=== PATIENT | male | born 1960 | race Hispanic/Latino ===

== ENCOUNTER 2016-04-28 14:03 | Inpatient (IN) | payer MEDICAID, OTHER ==
[2016-04-28 14:04] VITALS: BMI 27.7
[2016-04-28 15:10] LABS: BASO # 0.1 K/uL (0.0-0.2); BASO % 0.7 % (0.0-2.0); EOS # 0.1 K/uL (0.0-0.7); EOS % 1.1 % (0.0-4.0); HEMATOCRIT 46.8 % (35.0-51.0); LYMPH # 2.7 K/uL (1.0-4.3); LYMPH % 22.9 % (20.0-40.0); MEAN CORPUSCULAR HEMOGLOBIN 34.7 pg (27.0-31.0); MEAN CORPUSCULAR HGB CONC 34.4 g/dL (33.0-37.0); MEAN PLATELET VOLUME 8.5 fL (7.2-11.7); MONO # 0.9 K/uL (0.0-0.8); MONO % 7.9 % (0.0-10.0); NRBC % 0.1 % (0.0-2.0); RED CELL DISTRIBUTION WIDTH 13.5 % (11.5-14.5); WHITE BLOOD COUNT 11.7 K/uL (4.8-10.8)
[2016-04-28 15:13] LABS: MEAN CELL VOLUME 100.8 fL (80.0-94.0)
[2016-04-28 15:15] LABS: RBC URINE < 1 /hpf (0-3); URINE BACTERIA RARE (<OCC); URINE BILIRUBIN NEGATIVE (NEGATIVE); URINE BLOOD NEGATIVE (NEGATIVE); URINE COLOR Amber (YELLOW); URINE GLUCOSE (UA) NORMAL (Normal); URINE KETONE 1+ mg/dL (NEGATIVE); URINE LEUKOCYTE ESTERASE NEG Leu/uL (Negative); URINE PROTEIN 2+ mg/dL (NEGATIVE); WBC URINE 1 /hpf (0-5)
[2016-04-28 15:24] LABS: CHLORIDE 96 mmol/L (98-107)
[2016-04-28 15:25] LABS: POTASSIUM 3.9 mmol/L (3.6-5.2); SODIUM 140 mmol/L (132-148)
[2016-04-28 15:27] LABS: ALB/GLOB RATIO 1.4 (1.0-2.1); ALKALINE PHOSPHATASE 79 U/L (38-126); AST/SGOT 86 U/L (17-59); BLOOD UREA NITROGEN 13 mg/dL (9-20); CARBON DIOXIDE 23 mmol/L (22-30); GFR AFRICAN-AMERICAN > 60; GLUCOSE,RANDOM 183 mg/dL (75-110); TOTAL PROTEIN 7.3 g/dL (6.3-8.3)
[2016-04-28 15:28] LABS: ALCOHOL SERUM 291 mg/dl (0-10); ALT/SGPT 41 U/L (21-72); CALCIUM 8.7 mg/dl (8.6-10.4)
--- NOTE | 2016-04-28 15:52 | C.PDOC ---
History Of Present Illness 55 year old male presents to the ED requesting alcohol detox. Patient states he drinks 3 pints of liquor a day and also has complaints of left lower leg pain s/ p tripping over his cat at home 3 days ago. Time Seen by Provider: 04/28/16 14:19 Chief Complaint (Nursing): Substance Abuse History Per: Patient History/Exam Limitations: no limitations Onset/Duration Of Symptoms: Days Current Symptoms Are (Timing): Still Present Suicide/Self Injury Attempted (Context): None Modifying Factor(s): Alcohol Severity: Mild Past Medical History Reviewed: Historical Data, Nursing Documentation, Vital Signs Vital Signs: Last Vital Signs Temp 98.1 F 04/28/16 20:40 Pulse 130 H 04/28/16 20:40 Resp 18 04/28/16 20:40 BP 145/90 04/28/16 20:40 Pulse Ox 96 04/28/16 21:01 - Medical History PMH: Anxiety, COPD, Depression, Emphysema, Hepatitis (B and C), Sexually Transmitted Disease Surgical History: Appendectomy (8 yrs old) - [facility] Procedures ALCOHOL DETOXIFICATION (10/31/14) NEBULIZER THERAPY (07/31/04) Family History: States: Unknown Family Hx - Social History Hx Tobacco Use: Yes Hx Alcohol Use: Yes Hx Substance Use: No - Immunization History Hx Tetanus Toxoid Vaccination: No Hx Influenza Vaccination: No Hx Pneumococcal Vaccination: No Review Of Systems Except As Marked, All Systems Reviewed And Found Negative. Constitutional: Positive for: Other (+Detox). Negative for: Fever, Chills Cardiovascular: Negative for: Chest Pain Respiratory: Negative for: Shortness of Breath Musculoskeletal: Positive for: Leg Pain (+Left lower leg pain) Neurological: Negative for: Weakness, Numbness Physical Exam - Physical Exam Appears: Non-toxic, No Acute Distress, Unkempt, Other (+AOB + Foul smelling) Skin: Normal Color, Warm, Dry Head: Atraumatic, Normacephalic Eye(s): bilateral: Normal Inspection Oral Mucosa: Moist Chest: Symmetrical Cardiovascular: Rhythm Regular Respiratory: Normal Breath Sounds, No Accessory Muscle Use Extremity: Normal ROM, No Calf Tenderness, No Deformity, Swelling (+Mild swelling and ecchymosis to the left lateral lower leg) Neurological/Psych: Oriented x3, Normal Speech, Normal Cognition Gait: Other (+Antalgic gait) ED Course And Treatment - Laboratory Results Result Diagrams: 04/28/16 15:00 04/28/16 15:00 O2 Sat by Pulse Oximetry: 96 (Room air) Pulse Ox Interpretation: Normal - Other Rad Tibia Fibula X-ray X-Ray: Viewed By Me, Read By Radiologist Interpretation: Findings: Transverse oblique mildly distracted fracture through the proximal fibula at the proximal medullary cavity. Moderate medial compartment joint space narrowing at the femorotibial joint space. Punctate radiopaque density projects within the soft tissues anterior to the patellar tendon, nonspecific, clinical correlation to exclude a foreign body. Vascular calcifications. Question small loose osteochondral body within the femorotibial joint space on the frontal view. Ankle mortise is maintained. Impression: Proximal fibular fracture as described above. Progress Note: Tibia Fibula X-ray, EKG, Blood work, and Urinalysis ordered and reviewed. Patient treated with Librium and Tramadol - Physician Consult Information Outcome Of Conversation: 1420: d/w [facility]- will eval. 1500 and 1800: d/ w Martha Swanson- Orthopedics [employer]- agrees with posterior splint and pain meds for L lateral fibula fracture. Crutch walking when sober and Ortho will follow when consulted. Medical Decision Making Medical Decision Making: alcoholism L upper fibular fx now with posterior splint note: pt with baseline tachycardia which is NOT an accurate indication of THIS patient's alcohol withdrawal symptoms Librium 100 mg given in ED without significant improvement of resting tachycardia. Considering extensive heavy alcohol abuse a dilated cardiomyopathy may be better elucidated with cardiac echo and Cardiology Consult PRN Disposition Doctor Will See Patient In The: Hospital Counseled Patient/Family Regarding: Studies Performed, Diagnosis - Disposition Disposition: HOSPITALIZED Disposition Time: 21:26 Condition: GOOD - Clinical Impression Clinical Impression: Alcohol abuse - Scribe Statement The provider has reviewed the documentation as recorded by the Scribe Jane Cleary. Provider Attestation: All medical record entries made by the Scribe were at my direction and personally dictated by me. I have reviewed the chart and agree that the record accurately reflects my personal performance of the history, physical exam, medical decision making, and the department course for this patient. I have also personally directed, reviewed, and agree with the discharge instructions and disposition.
[2016-04-29] MEDS: Multiple Vitamins Tab PO SCH (09:09)
--- NOTE | 2016-04-29 14:15 | PCM.PSYCH ---
Initial Psychiatric Evaluation - Initial Psychiatric Evaluation Type of Admission: Voluntary Legal Status: Capacity Chief Complaint (in patient's own words): I came in to get help History of Present Illness and Precipitating Events: This is a 55 years old CM currently unemployed and living with girlfriend came to the ED to get help in a alcohol detox. Patient reports that he was admitted at [facility] for alcohol detox almost 2 years ago. As per him he relapsed on drinking and continues to drink pint to 2 pints of vodka on a daily basis. As per the patient he fell down in his house and broke his L leg, almost a week ago. Since then he is drinking more to control the pain. Yesterday he drank more than half pint of vodka, became increasingly anxious and started withdrawing so came to ED to get help. His BAL was 291. Patient reports withdrawal symptoms including anxiety, headaches, sweating, and gastric upset. He reports depressed mood but denies any suicidal ideation or homicidal ideation. Patient denies any auditory or visual hallucinations or any psychotic symptoms. Denies any manic symptoms. Denies any other current substance abuse. Patient reports history of sniffing and injecting heroin, last abuse was more than 10 years ago. Past psychiatric history History of 1 inpatient psychiatric hospitalization, in 80s for depression, when patient had a suicidal ideation with plan to jump in front of traffic. Patient reports history of follow-up with a psychiatrist. Patient denies any psychotic symptoms in the past Past medical history Hep B, C, emphysema Current Medications: Active Medications Generic Name Dose Route Start Last Admin Trade Name Freq PRN Reason Stop Dose Admin Chlordiazepoxide 25 mg 04/28/16 21:40 04/28/16 22:25 Librium PO 25 mg Q4H PRN Administration Alcohol Withdrawal Chlordiazepoxide 25 mg 04/29/16 00:00 04/29/16 11:15 Librium PO 05/02/16 23:59 25 mg Q6 ELIZABETH Administration Taper Clonidine HCl 0.1 mg 04/28/16 21:45 04/29/16 06:44 Catapres PO 0.1 mg Q8 PRN Administration alcohol withdrawal Folic Acid 1 mg 04/29/16 10:00 04/29/16 09:09 Folic Acid PO 1 mg DAILY ELIZABETH Administration Hydroxyzine HCl 25 mg 04/28/16 22:10 04/29/16 09:09 Atarax PO 25 mg Q8 PRN Administration Anxiety Ibuprofen 600 mg 04/28/16 21:41 Motrin Tab PO Q8 PRN Pain, moderate (4-7) Multivitamins 1 tab 04/29/16 10:00 04/29/16 09:09 Hexavitamin PO 1 tab DAILY ELIZABETH Administration Thiamine HCl 100 mg 04/29/16 10:00 04/29/16 09:09 Vitamin B1 Tab PO 100 mg DAILY ELIZABETH Administration Trazodone HCl 50 mg 04/28/16 21:40 04/28/16 22:25 Desyrel PO 50 mg HS PRN Administration Insomnia Past Psychiatric History - Past Psychiatric History Previous Treatment History: Inpatient Pertinent Medical Hx (Current Medical&Sleep Prob, Allergies): Allergies Allergy/AdvReac Type Severity Reaction Status Date / Time No Known Allergies Allergy Verified 04/28/16 14:15 No Known Home Med 04/28/16 Review of Systems - Review of Systems All systems: reviewed and no additional remarkable complaints except - Psychiatric Psychiatric: Anxiety, Irritability. absent: Auditory Hallucinations, Homicidal Ideation, Memory Loss, Suicidal Ideation, Visual Hallucinations Mental Status Examination - Personal Presentation Personal Presentation: Looks stated age - Affect Affect: Constricted, Depressed - Motor Activity Motor Activity: Calm - Reliability in Providing Information Reliability in Providing Information: Good - Speech Speech: Organized - Mood Mood: Depressed, Anxious - Formal Thought Process Formal Thought Process: No Impairment - Obsessions/Compulsions Obsessions: No Compulsions: No - Cognitive Functions Orientation: Person, Place, Situation, Time Sensorium: Alert Attention/Concentration: Attentive Abstract Thinking: [place] Estimate of Intelligence: Below average Judgement: Imparied, as evidence by: Poor judgement, Intact, as evidence by: Insight regarding need for hospitalization - Risk Risk: Withdrawal, Diminished functioning - Strength & Assets Inventory Strength & Assets Inventory: Cooperative DSM 5 DX - DSM 5 DSM 5 Diagnosis: Alcohol use disorder severe Alcohol withdrawal uncomplicated Opiate use disorder severe in sustained remission Major depressive disorder recurrent mild - Recommended/Plan of Treatment Treatment Recommendations and Plan of Treatment: Alcohol use disorder severe CBT Psychoeducation Supportive therapy, individual therapy Use [place] for abstinence Alcohol withdrawal uncomplicated CBT Psychoeducation Supportive therapy, individual therapy Librium when necessary Start Librium taper Start folic acid/thiamine/multivitamin Opiate use disorder severe in sustained remission Monitor signs and symptoms Use [place] for abstinence Major depressive disorder recurrent Mild CBT Psychoeducation Supportive therapy, individual therapy Start Zoloft 25 mg PO daily Start Trazodone 50 mg PO Q HS - Smoking Cessation Smoking Cessation Initiated: Yes
[2016-04-30] MEDS: Multiple Vitamins Tab PO SCH (10:37)
--- NOTE | 2016-04-30 12:15 | PCM.PYCHPN ---
Psychiatric Progress Note - Psychiatric Progress Note Patient seen today, length of contact: 16 min Patient Chief Complaint: "I have to take care of stuff. I'd like to leave tomorrow" Problems Identified/Issues Discussed: The pt is seen, chart reviewed, case discussed with staff. He agreed to stay and complete his detox after discussion Seen by ortho The pt is compliant with medications and reports no side-effects. Symptoms are improving but needs more time to stabilize. After care discussed, support and psychoeducation given. MD and CBT used briefly. Medication Change: Yes (detox changes daily) Medical Record Reviewed: Yes Mental Status Examination - Cognitive Function Orientation: Person, Place, Situation, Time Memory: Intact Attention: WNL Concentration: WNL Association: [facility] Fund of Knowledge: WN - Mood Mood: Depressed, Anxious - Affect Affect: Constricted, Depressed - Speech Speech: Appropriate - Formal Thought Process Formal Thought Process: No Impairment - Suicidal Ideation Suicidal Ideation: No - Homicidal Ideation Homicidal Ideation: No Goal/Treatment Plan - Goal/Treatment Plan Need for Continued Stay: Discharge may exacerbated symptoms, Severe functional impairment Progress Toward Problem(s) and Goals/Treatment Plan: Continue medications Support and psychoeducation daily Attend groups and activities daily After care planning by counselors MD and CBT Estimated Date of D/C: 05/02/16 - Smoking Cessation Smoking Cessation Initiated: Yes
--- NOTE | 2016-04-30 15:50 | CP.PCM.CON ---
History of Present Illness - History of Present Illness History of Present Illness: 55M complains of left leg pain after a fall 04/14/2016 at home. He denies ankle pain. 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 He denies CP/SOB/dizziness/ palpitations/numbness/tingling. He denies pain in other extremities. No headache /head injury/syncope. Heavy smoker. Review of Systems - Review of Systems All systems: reviewed and no additional remarkable complaints except - Constitutional Constitutional: As Per HPI - Cardiovascular Cardiovascular: As Per HPI - Respiratory Respiratory: As Per HPI - Gastrointestinal Gastrointestinal: As Per HPI - Musculoskeletal Musculoskeletal: As Per HPI - Integumentary Integumentary: Swelling - Neurological Neurological: Abnormal Gait - Hematologic/Lymphatic Hematologic: absent: As Per HPI, Easy Bleeding, Easy Bruising, Lymphadenopathy, Other Past Patient History - Infectious Disease Hx of Infectious Diseases: None - Past Medical History & Family History Past Medical History?: Yes Past Family History: Reviewed and not pertinent - Past Social History Smoking Status: Heavy Smoker > 10 Cigarettes Daily - CARDIAC Hx Hypertension: No - PULMONARY Hx Chronic Obstructive Pulmonary Disease (COPD): Yes Hx Emphysema: Yes - NEUROLOGICAL Hx Seizures: No - HEMATOLOGICAL/ONCOLOGICAL Hx Human Immunodeficiency Virus (HIV): No - MUSCULOSKELETAL/RHEUMATOLOGICAL Hx Falls: Yes Hx Fractures: Yes - GENITOURINARY/GYNECOLOGICAL Hx Sexually Transmitted Disorders: Yes - PSYCHIATRIC Hx Anxiety: Yes Hx Depression: Yes Hx Substance Use: No - SURGICAL HISTORY Hx Appendectomy: Yes (8 yrs old) - ANESTHESIA Hx Anesthesia: Yes Hx Anesthesia Reactions: No Hx Malignant Hyperthermia: No Has any member of the family had a problem w/ anesthesia?: No Meds Allergies/Adverse Reactions: Allergies Allergy/AdvReac Type Severity Reaction Status Date / Time No Known Allergies Allergy Verified 04/28/16 14:15 - Medications Medications: Current Medications Chlordiazepoxide (Librium) 25 mg PO Q4H PRN PRN Reason: Alcohol Withdrawal Last Admin: 04/30/16 01:38 Dose: 25 mg Chlordiazepoxide (Librium) 25 mg PO TID ELIZABETH PRN Reason: Taper Stop: 05/02/16 23:59 Last Admin: 04/30/16 13:07 Dose: 25 mg Clonidine HCl (Catapres) 0.1 mg PO Q8 PRN PRN Reason: alcohol withdrawal Last Admin: 04/29/16 06:44 Dose: 0.1 mg Folic Acid (Folic Acid) 1 mg PO DAILY [facility] Last Admin: 04/30/16 10:37 Dose: 1 mg Hydroxyzine HCl (Atarax) 25 mg PO Q8 PRN PRN Reason: Anxiety Last Admin: 04/29/16 09:09 Dose: 25 mg Ibuprofen (Motrin Tab) 600 mg PO Q8 PRN PRN Reason: Pain, moderate (4-7) Multivitamins (Hexavitamin) 1 tab PO DAILY [facility] Last Admin: 04/30/16 10:37 Dose: 1 tab Naltrexone HCl (Revia) 50 mg PO DAILY [facility] Last Admin: 04/30/16 12:09 Dose: 50 mg Propranolol HCl (Inderal) 10 mg PO TID [facility] Last Admin: 04/30/16 13:07 Dose: 10 mg Thiamine HCl (Vitamin B1 Tab) 100 mg PO DAILY [facility] Last Admin: 04/30/16 10:37 Dose: 100 mg Trazodone HCl (Desyrel) 50 mg PO HS PRN PRN Reason: Insomnia Last Admin: 04/30/16 01:38 Dose: 50 mg Physical Exam - Constitutional Appears: Well, No Acute Distress - Head Exam Head Exam: ATRAUMATIC, NORMAL INSPECTION - ENT Exam ENT Exam: Mucous Membranes Moist - Neck Exam Neck exam: Positive for: Full Rom - Respiratory Exam Respiratory Exam: NORMAL BREATHING PATTERN - Cardiovascular Exam Additional comments: +DP/PT pulses - Extremities Exam Additional comments: calves soft NT neg homans - Expanded Lower Extremities Exam Left Hip exam: full ROM Knee exam: full ROM, normal inspection Lower Leg Exam: ecchymosis, swelling, tenderness Ankle exam: FULL ROM, NORMAL INSPECTION Neuro vacular tendon exam: no vascular compromise - Neurological Exam Neurological exam: Alert, Oriented x3 - Psychiatric Exam Psychiatric exam: Normal Affect, Normal Mood - Skin Skin Exam: Dry, Intact, Warm Additional comments: +ecchymosis noted to lateral lower leg Results - Vital Signs Recent Vital Signs: Last Vital Signs Temp 98 F 04/30/16 09:00 Pulse 91 H 04/30/16 14:55 Resp 18 04/30/16 13:00 BP 139/80 04/30/16 13:00 Pulse Ox 98 04/30/16 13:00 - Labs Result Diagrams: 04/28/16 15:00 04/28/16 15:00 - Impressions Impression: Patient Name / ID : ALVARO RICHARDS / [id number] Exam Date : 04/28/2016 14:24:34 ( Approved ) Study Comment : Sex / Age : M / 55Y Creator : Romario Concepcion MD Dictator : Romario Concepcion MD Cold Molding Press Operator : Telephone Surveyor : Romario Concepcion MD Approver2 : Report Date : 04/28/2016 15:49:53 My Comment : Left tibia and fibula three views History: Fracture. Comparison: None available. Findings: Transverse oblique mildly distracted fracture through the proximal fibula at the proximal medullary cavity. Moderate medial compartment joint space narrowing at the femorotibial joint space. Punctate radiopaque density projects within the soft tissues anterior to the patellar tendon, nonspecific, clinical correlation to exclude a foreign body. Vascular calcifications. Question small loose osteochondral body within the femorotibial joint space on the frontal view. Ankle mortise is maintained. Impression: Proximal fibular fracture as described above. Assessment & Plan (1) Closed fracture of shaft of left fibula Status: Acute Comment: 2.5 weeks after left proximal fibular shaft fracture. xrays from 04/14 and 04/28 reviewed, position well maintained with some interim healing noted. smoking cessation advised. non operative. weight bearing as tolerated. splint removed. PT eval pending. d/w Dr. Thomas, agrees with above. patient to f/u 2 weeks after discharge, call for appointment [phone]. work note on chart. return for follow up sooner if pain increases, or for any s/s of DVT
--- NOTE | 2016-04-30 22:05 | CARD ---
APPROVED REPORT EKG Measurement Heart [id number] <Conclusion> Sinus tachycardia Possible Left atrial enlargement Borderline ECG
--- NOTE | 2016-04-30 22:09 | CARD ---
APPROVED REPORT EKG Measurement Heart [id number] <Conclusion> Sinus tachycardia with premature supraventricular complexes Otherwise normal ECG
[2016-05-01] MEDS: Multiple Vitamins Tab PO SCH (09:50)
--- NOTE | 2016-05-01 11:13 | PCM.PYCHPN ---
Psychiatric Progress Note - Psychiatric Progress Note Patient seen today, length of contact: 16 min Patient Chief Complaint: "I am OK but tired" Problems Identified/Issues Discussed: The pt is seen, chart reviewed, case discussed with staff. The pt is compliant with medications and reports no side-effects. Symptoms of withdrawal are improving but needs more time to stabilize. After care discussed, support and psychoeducation given. A letter prepared for time off due to medical reasons ND and CBT used briefly. Medication Change: Yes (detox changes daily) Medical Record Reviewed: Yes Mental Status Examination - Cognitive Function Orientation: Person, Place, Situation, Time Memory: Intact Attention: WNL Concentration: WNL Association: WNL Fund of Knowledge: WNL - Mood Mood: Depressed, Anxious - Affect Affect: Constricted, Depressed - Speech Speech: Appropriate - Formal Thought Process Formal Thought Process: No Impairment - Suicidal Ideation Suicidal Ideation: No - Homicidal Ideation Homicidal Ideation: No Goal/Treatment Plan - Goal/Treatment Plan Need for Continued Stay: Discharge may exacerbated symptoms, Severe functional impairment Progress Toward Problem(s) and Goals/Treatment Plan: Continue medications Support and psychoeducation daily Attend groups and activities daily After care planning by counselors ND and CBT Estimated Date of D/C: 05/02/16
[2016-05-01 13:36] VITALS: RESP 18
[2016-05-02 08:21] VITALS: BP 115/82; PULSE 90; TEMP 98.2; O2SAT 99
--- NOTE | 2016-05-02 11:56 | PCM.PYCHDC ---
Mental Status Examination - Mental Status Examination Orientation: Person, Place, Situation, Time Memory: Intact Mood: Neutral Affect: Constricted Speech: Soft Attention: WNL Concentration: WNL Association: WNL Fund of Knowledge: WNL Formal Thought Process: No Impairment Description of patient's judgement and insight: good, fair Psychotic Thoughts and Behaviors: denies nakaia [place] Suicidal Ideation: No Current Homicidal Ideation?: No Discharge Summary - Discharge Note Reason for Hospitalization: This is a 55 years old CM currently unemployed and living with girlfriend came to the ED to get help in a alcohol detox. Patient reports that he was admitted at [facility] for alcohol detox almost 2 years ago. As per him he relapsed on drinking and continues to drink pint to 2 pints of vodka on a daily basis. As per the patient he fell down in his house and broke his L leg, almost a week ago. Since then he is drinking more to control the pain. Yesterday he drank more than half pint of vodka, became increasingly anxious and started withdrawing so came to ED to get help. His BAL was 291. Patient reports withdrawal symptoms including anxiety, headaches, sweating, and gastric upset. He reports depressed mood but denies any suicidal ideation or homicidal ideation. Patient denies any auditory or visual hallucinations or any psychotic symptoms. Denies any manic symptoms. Denies any other current substance abuse. Patient reports history of sniffing and injecting heroin, last abuse was more than 10 years ago. Past psychiatric history History of 1 inpatient psychiatric hospitalization, in 80s for depression, when patient had a suicidal ideation with plan to jump in front of traffic. Patient reports history of follow-up with a psychiatrist. Patient denies any psychotic symptoms in the past Consultations:: List each consultation separately and include: 1. Reason for request. 2. Findings. 3. Follow-up Summary of Hospital Course include:: 1. Description of specific treatment plan utilized for patients during their course of treatmen. 2. Summarize the time- course for resolution of acute symptoms and/or regressed behaviors. 3. Describe issues identified and worked on during hospitalization. 4. Describe medication utilized. 5. Describe medical problems identified and treated. 6. Reassessment of suicide risk Summary of Hospital Course: During the course of his stay, patient (pt) started progressively improving and he no longer remained anxious and irritable. He tolerated the withdrawal protocol very well. He didnt have any shakes, sweating or any other withdrawal symptoms. He started attending groups and meetings and started socializing. Denied any feelings of hopelessness, helplessness, and worthlessness, denied any problem with the sleep or appetite, denied suicidal ideation or homicidal ideation. Pt denied any auditory or visual hallucinations. Patient remained calm and cooperative and remained compliant with the medications. Patient tolerated the detox medications very well and denied any side effects. - Final Diagnosis (DSM 5) Condition upon Discharge: GOOD DSM 5: Alcohol use disorder severe Alcohol withdrawal uncomplicated Opiate use disorder severe in sustained remission Major depressive disorder recurrent Mild Disposition: HOME/ ROUTINE Follow-up Treatment Plan: Education: Pt was educated and counseled about the risks and benefits of taking and not taking medications. Pt was educated and counseled about the risks of drinking and abusing drugs. Pt was educated and counseled to go to the ER or call 911 if pt develop suicidal ideation or homicidal ideation, worsening of symptoms or severe side effects of the meds. Prescriptions/Medication Reconciliation: traZODone [Desyrel] 50 mg PO HS PRN #30 tab PRN Reason: Insomnia Multivitamins [Hexavitamin] 1 tab PO DAILY #30 tab Propranolol [Inderal] 10 mg PO TID #90 tab Naltrexone [Revia] 50 mg PO DAILY #30 tab - Smoking Cessation Smoking Cessation Medication prescribed: No - Antipsychotic Medications Pt discharged on 2 or more routine antipsychotic medications: No
== END 2016-05-02 08:15 | disposition home or self-care (01) | DRG 744 ==
LOC: C.ER 14:03 → C.7D 21:26
PROVIDERS: ADMIT Psychiatry & Neurology Psychiatry; ATTEND Psychiatry & Neurology Psychiatry
PROC: HZ2ZZZZ Detoxification Services for Substance Abuse Treatment (ICD-10-PCS; principal; 2016-04-28)
PROC: GZ56ZZZ Individual Psychotherapy, Supportive (ICD-10-PCS; 2016-04-28)
DX: F10.239 Alcohol dependence with withdrawal, unspecified (principal); J44.9 Chronic obstructive pulmonary disease, unspecified; F11.21 Opioid dependence, in remission; F33.0 Major depressive disorder, recurrent, mild; F41.9 Anxiety disorder, unspecified; F17.200 Nicotine dependence, unspecified, uncomplicated; G47.00 Insomnia, unspecified; F10.220 Alcohol dependence with intoxication, uncomplicated; Y90.8 Blood alcohol level of 240 mg/100 ml or more

== ENCOUNTER 2018-04-03 13:09 | Observation (INO) | payer BC, OTHER ==
[2018-04-03 13:09] VITALS: BMI 26.4
--- NOTE | 2018-04-03 14:11 | C.PDOC ---
History Of Present Illness 57 year old male with a history of COPD presents to the ED requesting ETOH detox. The patient admits his last ETOH intake was 4pm yesterday. States he had to stop drinking prompting ED visit today. He also complains of generalized malaise and myalgia with nausea. Additionally complains of COPD exacerbation. Reports that a baseline his oxygen is in the 80s. Denies fever, chills, SI, HI, and any other associated symptoms. PMH of HBV, HCV, ETOH use, COPD. ADMITTED 04/2017 FOR TACHYCARDIA, HYPOXIA Time Seen by Provider: 04/03/18 14:10 Chief Complaint (Nursing): Substance Abuse History Per: Patient History/Exam Limitations: no limitations Recent travel outside of the [place]: No Past Medical History Reviewed: Historical Data, Nursing Documentation, Vital Signs Vital Signs: Last Vital Signs Temp 98.7 F 04/03/18 13:26 Pulse 148 H 04/03/18 13:26 Resp 20 04/03/18 13:26 BP 134/88 04/03/18 13:26 Pulse Ox 90 L 04/03/18 13:26 - Medical History PMH: Anxiety, COPD, Depression, Emphysema, Fractures (L LEG), Hepatitis (B and C), HTN, Mitral Valve Prolapse, Sexually Transmitted Disease, TIA Denies: Diabetes, HIV, Chronic Kidney Disease, Seizures Surgical History: Appendectomy - [facility] Procedures ALCOHOL DETOXIFICATION (10/31/14) DETOXIFICATION SERVICES FOR SUBSTANCE ABUSE TREATMENT (04/28/16) INDIVIDUAL PSYCHOTHERAPY, SUPPORTIVE (04/28/16) NEBULIZER THERAPY (07/31/04) Family History: States: Unknown Family Hx - Social History Hx Tobacco Use: Yes Hx Alcohol Use: Yes (HX DAILY, CURRENT SOCIAL) Hx Substance Use: Yes (HEROIN 15 YRS AGO) - Immunization History Hx Tetanus Toxoid Vaccination: No Hx Influenza Vaccination: No Hx Pneumococcal Vaccination: No Review Of Systems Except As Marked, All Systems Reviewed And Found Negative. Constitutional: Positive for: Malaise (generalized. ), Other (generalized myalgia.). Negative for: Fever, Chills Respiratory: Positive for: Other (COPD exacerbation. ) Gastrointestinal: Positive for: Nausea Psych: Negative for: Suicidal ideation ((-) SI. (-) HI. ) Physical Exam - Physical Exam Appears: Other (mild distress.) Skin: Warm, Dry Head: Atraumatic, Normacephalic Eye(s): bilateral: Normal Inspection Oral Mucosa: Moist Tongue: No Other (no tongue fasciculation.) Neck: Normal ROM Chest: Symmetrical, No Deformity Cardiovascular: Rhythm Regular (Regular rate. ), No Murmur, Other (tachycardia.) Respiratory: No Rales, No Rhonchi, Wheezing (bilateral expiratory wheezing.) Gastrointestinal/Abdominal: Normal Exam, Soft, No Tenderness Extremity: Bilateral: Atraumatic, Normal Color And Temperature Neurological/Psych: Oriented x3, Normal Speech (speaking full sentences. ), Other (moderate ETOH withdrawal. calm. cooperative. ) ED Course And Treatment - Laboratory Results Result Diagrams: 04/03/18 14:54 04/03/18 14:54 ECG: Interpreted By Me, Viewed By Me ECG Rhythm: Sinus Tachycardia Rate From EC O2 Sat by Pulse Oximetry: 90 Pulse Ox Interpretation: Abnormal - Radiology CXR: Interpreted by Me, Viewed By Me CXR Interpretation: Yes: No Acute Disease Progress - Re-Evaluation Re-evaluation Note: 04/03/18 14:42 D/W CRISIS, WILL SCREEN FOR DETOX 04/03/18 16:08 PERSIST HYPOXIA, REQUIRING VAPOTHERM SUPPORT. D/W DR Shae POWER DIRECTOR INFORMATION SECURITY - Data Reviewed Data Reviewed: Lab, Diagnostic imaging, EKG, Old records - Critical Care Citical Care: Excluding Proc Time Critical Care Time: 90 minutes Medical Decision Making Medical Decision Making: Initial plan: -Blood sent. -CXR -Duoneb -Zofran -Toradol -Solu-Medrol -Ativan -Librium Disposition Counseled Patient/Family Regarding: Studies Performed, Diagnosis, Need For Followup - Disposition Disposition: HOSPITALIZED Disposition Time: 16:46 Condition: STABLE - POA Present On Arrival: None - Clinical Impression Clinical Impression: Alcohol intoxication, COPD exacerbation - Scribe Statement The provider has reviewed the documentation as recorded by the Scribe (Esther Garcia) Provider Attestation: All medical record entries made by the Scribe were at my direction and personally dictated by me. I have reviewed the chart and agree that the record accurately reflects my personal performance of the history, physical exam, medical decision making, and the department course for this patient. I have also personally directed, reviewed, and agree with the discharge instructions and disposition.
[2018-04-03] MEDS ORDERED: Sodium Chloride 0.9% 1,000 ML IV ONE (14:42)
[2018-04-03] MEDS ORDERED: MethylPREDNISolone 40 mg Vial IVP STA (14:44)
[2018-04-03 14:57] LABS: BASO # 0.1 K/uL (0.0-0.2); BASO % 0.4 % (0.0-2.0); EOS % 0.1 % (0.0-4.0); LYMPH # 0.8 K/uL (1.0-4.3); LYMPH % 5.6 % (20.0-40.0); MEAN CORPUSCULAR HEMOGLOBIN 35.6 pg (27.0-31.0); MEAN CORPUSCULAR HGB CONC 33.9 g/dL (33.0-37.0); MEAN PLATELET VOLUME 8.6 fL (7.2-11.7); MONO # 1.1 K/uL (0.0-0.8); MONO % 7.9 % (0.0-10.0); NEUT # 12.3 K/uL (1.8-7.0); PLATELET COUNT 108 K/uL (130-400); RBC 4.76 Mil/uL (4.40-5.90); RED CELL DISTRIBUTION WIDTH 13.2 % (11.5-14.5); WHITE BLOOD COUNT 14.2 K/uL (4.8-10.8)
[2018-04-03 15:10] LABS: ALB/GLOB RATIO 1.6 (1.0-2.1); ALT/SGPT 44 U/L (21-72); AST/SGOT 95 U/L (17-59); BLOOD UREA NITROGEN 14 mg/dL (9-20); CALCIUM 7.6 mg/dl (8.6-10.4); GFR NON-AFRICAN AMERICAN > 60
[2018-04-03] MEDS ORDERED: MethylPREDNISolone 40 mg Vial ONE (15:17)
[2018-04-03] MEDS ORDERED: Sodium Chloride 0.9% 1,000 ML ONE (15:18)
[2018-04-03 15:23] LABS: BANDS 8 % (0-2); LYMPHOCYTE 6 % (20-40); MONOCYTE 6 % (0-10); NEUTROPHIL 80 % (50-75); PLATELET ESTIMATE SLIGHTLY DECREASED (NORMAL); TOTAL CELLS COUNTED 100
[2018-04-03 15:24] LABS: ANISOCYTOSIS SLIGHT
[2018-04-03 15:24] LABS: URINE BILIRUBIN NEGATIVE (NEGATIVE); URINE CLARITY Clear (Clear); URINE COLOR Yellow (YELLOW); URINE GLUCOSE (UA) 1+ mg/dL (Normal); URINE LEUKOCYTE ESTERASE NEG Leu/uL (Negative); URINE PROTEIN NEGATIVE (NEGATIVE); URINE UROBILINOGEN NORMAL mg/dL (0.2-1.0)
[2018-04-03 15:30] LABS: URINE BLOOD TRACE-LYSED (NEGATIVE)
[2018-04-03] MEDS ORDERED: Albuterol 0.083% Inhal Sol (2.5 mg/3 mL) UD ONE (15:41)
[2018-04-03 15:43] LABS: BARBITURATES, UR NEGATIVE (NEGATIVE); OPIATES, UR NEGATIVE (NEGATIVE); PHENCYCLIDINE, UR NEGATIVE (NEGATIVE)
[2018-04-03 15:44] LABS: BENZODIAZEPINES, UR POSITIVE (NEGATIVE)
[2018-04-03] MEDS ORDERED: Folic Acid 1 MG, Thiamine 100 MG, Multivitamin (MVI) 10 ML in Dextrose 5% In Water 1,00... IV SCH (17:30)
--- NOTE | 2018-04-03 17:30 | RAD ---
Date of service: 04/03/2018 PROCEDURE: CHEST RADIOGRAPH, 1 VIEW HISTORY: SOB HO COPD COMPARISON: Comparison is made with 10/15/2012 FINDINGS: LUNGS: Heterogeneous opacities noted at the left lower lung new compared to the prior study. Otherwise no significant interval changes. PLEURA: No pneumothorax or pleural fluid seen. CARDIOVASCULAR: No aortic atherosclerotic calcification present. Normal. OSSEOUS STRUCTURES: No significant abnormalities. VISUALIZED UPPER ABDOMEN: Normal. OTHER FINDINGS: None. IMPRESSION: Possible new small opacity and or infiltrate at the left lower lobe. Otherwise no significant interval changes.
[2018-04-03] MEDS: Albuterol-Ipratrop 3 mg / 0.5 (3 ml) UD IH SCH (17:55)
[2018-04-03] MEDS ORDERED: Fluticasone-Vilanterol 100/25mcg Diskus INH SCH (18:00)
[2018-04-03] MEDS ORDERED: Azithromycin 500 MG in Sodium Chloride 0.9% 250 ML IVPB SCH (18:30)
--- NOTE | 2018-04-03 18:32 | CP.PCM.HP ---
Past Patient History - Infectious Disease Hx of Infectious Diseases: None - Tetanus Immunizations Tetanus Immunization: Up to Date - Past Medical History & Family History Past Medical History?: Yes - Past Social History Smoking Status: Heavy Smoker > 10 Cigarettes Daily - CARDIAC Hx Hypertension: Yes Hx Mitral Valve Prolapse: Yes - PULMONARY Hx Chronic Obstructive Pulmonary Disease (COPD): Yes Hx Emphysema: Yes - NEUROLOGICAL Hx Seizures: No Hx Transient Ischemic Attacks (TIA): Yes - HEENT Hx HEENT Problems: No - RENAL Hx Chronic Kidney Disease: No - ENDOCRINE/METABOLIC Hx Endocrine Disorders: No - HEMATOLOGICAL/ONCOLOGICAL Hx Human Immunodeficiency Virus (HIV): No - INTEGUMENTARY Hx Dermatological Problems: No - MUSCULOSKELETAL/RHEUMATOLOGICAL Hx Fractures: Yes (L LEG) - GASTROINTESTINAL Hx Gastrointestinal Disorders: No - GENITOURINARY/GYNECOLOGICAL Hx Sexually Transmitted Disorders: Yes - PSYCHIATRIC Hx Anxiety: Yes Hx Depression: Yes Hx Substance Use: Yes (HEROIN 15 YRS AGO) - SURGICAL HISTORY Hx Appendectomy: Yes - ANESTHESIA Hx Anesthesia: Yes Hx Anesthesia Reactions: No Hx Malignant Hyperthermia: No Meds Allergies/Adverse Reactions: Allergies Allergy/AdvReac Type Severity Reaction Status Date / Time No Known Allergies Allergy Verified 05/13/17 11:37 Physical Exam - Constitutional Appears: Well - Head Exam Head Exam: ATRAUMATIC, NORMAL INSPECTION, NORMOCEPHALIC - Eye Exam Eye Exam: EOMI, Normal appearance, PERRL Pupil Exam: NORMAL ACCOMODATION, PERRL - ENT Exam ENT Exam: Mucous Membranes Moist, Normal Exam - Neck Exam Neck exam: Positive for: Normal Inspection - Respiratory Exam Respiratory Exam: Decreased Breath Sounds - Cardiovascular Exam Cardiovascular Exam: REGULAR RHYTHM, +S1, +S2 - GI/Abdominal Exam GI & Abdominal Exam: Diminished Bowel Sounds, Soft - Rectal Exam Rectal Exam: Deferred Results - Vital Signs Recent Vital Signs: Last Vital Signs Temp 99.7 F H 04/03/18 16:15 Pulse 133 H 04/03/18 16:24 Resp 29 H 04/03/18 16:24 BP 129/78 04/03/18 16:24 Pulse Ox 90 L 04/03/18 18:17 - Labs Result Diagrams: 04/03/18 14:54 04/03/18 14:54 Labs: Laboratory Results - last 24 hr 04/03/18 04/03/18 04/03/18 14:54 14:54 15:13 WBC 14.2 H RBC 4.76 Hgb 17.0 Hct 50.0 MCV 105.0 H D MCH 35.6 H MCHC 33.9 RDW 13.2 Plt Count 108 L D MPV 8.6 Neut % (Auto) 86.0 H Lymph % (Auto) 5.6 L [place] % (Auto) 7.9 Eos % (Auto) 0.1 Baso % (Auto) 0.4 Neut # (Auto) 12.3 H Lymph # (Auto) 0.8 L [place] # (Auto) 1.1 H Eos # (Auto) 0.0 Baso # (Auto) 0.1 Neutrophils % (Manual) 80 H Band Neutrophils % 8 H Lymphocytes % (Manual) 6 L Monocytes % (Manual) 6 Platelet Estimate Slightly decreased L Anisocytosis (manual) Slight Macrocytosis (manual) Slight Sodium 136 Potassium 4.2 Chloride 98 Carbon Dioxide 25 Anion Gap 18 BUN 14 Creatinine 0.7 L Est GFR ( Amer) > 60 Est GFR (Non-Af Amer) > 60 Random Glucose 135 H D Calcium 7.6 L Phosphorus 2.2 L Magnesium 1.5 L Total Bilirubin 0.8 AST 95 H D ALT 44 Alkaline Phosphatase 65 Total Protein 6.5 Albumin 4.0 Globulin 2.5 Albumin/Globulin Ratio 1.6 Urine Color Yellow Urine Clarity Clear Urine pH 6.0 Ur Specific [place] 1.011 Urine Protein Negative Urine Glucose (UA) 1+ H Urine Ketones Trace Urine Blood Trace-lysed Urine Nitrate Negative Urine Bilirubin Negative Urine Urobilinogen Normal Ur Leukocyte Esterase Neg Urine WBC (Auto) < 1 Urine RBC (Auto) 1 Urine Opiates Screen Urine Methadone Screen Ur Barbiturates Screen Ur Phencyclidine Scrn Ur Amphetamines Screen U Benzodiazepines Scrn U Oth Cocaine Metabols U Cannabinoids Screen Alcohol, Quantitative 356 H 04/03/18 15:13 WBC RBC Hgb Hct MCV MCH MCHC RDW Plt Count MPV Neut % (Auto) Lymph % (Auto) [place] % (Auto) Eos % (Auto) Baso % (Auto) Neut # (Auto) Lymph # (Auto) [place] # (Auto) Eos # (Auto) Baso # (Auto) Neutrophils % (Manual) Band Neutrophils % Lymphocytes % (Manual) Monocytes % (Manual) Platelet Estimate Anisocytosis (manual) Macrocytosis (manual) Sodium Potassium Chloride Carbon Dioxide Anion Gap BUN Creatinine Est GFR ( Amer) Est GFR (Non-Af Amer) Random Glucose Calcium Phosphorus Magnesium Total Bilirubin AST ALT Alkaline Phosphatase Total Protein Albumin Globulin Albumin/Globulin Ratio Urine Color Urine Clarity Urine pH Ur Specific [place] Urine Protein Urine Glucose (UA) Urine Ketones Urine Blood Urine Nitrate Urine Bilirubin Urine Urobilinogen Ur Leukocyte Esterase Urine WBC (Auto) Urine RBC (Auto) Urine Opiates Screen Negative Urine Methadone Screen Negative Ur Barbiturates Screen Negative Ur Phencyclidine Scrn Negative Ur Amphetamines Screen Negative U Benzodiazepines Scrn Positive U Oth Cocaine Metabols Negative U Cannabinoids Screen Negative Alcohol, Quantitative
[2018-04-03] MEDS: MethylPREDNISolone 40 mg Vial IVP SCH ×2 (18:56→22:36)
[2018-04-03] MEDS ORDERED: Albuterol-Ipratrop 3 mg / 0.5 (3 ml) UD INH SCH (20:00)
[2018-04-04] MEDS: MethylPREDNISolone 40 mg Vial IVP SCH (05:38)
[2018-04-04 08:40] VITALS: BP 149/93; PULSE 78; TEMP 97.9; O2SAT 96
[2018-04-04 11:14] VITALS: RESP 18
== END 2018-04-04 11:45 | disposition left against medical advice (07) ==
LOC: C.ER 13:09 → C.9E 16:47 → C.6T 18:50
PROVIDERS: ADMIT Internal Medicine Nephrology; ATTEND Internal Medicine Nephrology
DX: F10.129 Alcohol abuse with intoxication, unspecified (principal); J44.1 Chronic obstructive pulmonary disease with (acute) exacerbation; Z86.73 Personal history of transient ischemic attack (TIA), and cerebral infarction without residual deficits; I10 Essential (primary) hypertension; B19.20 Unspecified viral hepatitis C without hepatic coma; B19.10 Unspecified viral hepatitis B without hepatic coma; I34.1 Nonrheumatic mitral (valve) prolapse; F41.9 Anxiety disorder, unspecified
CPT/HCPCS: 71045; 80053; 81001; 83735; 84100; 85025; 93005; 94640; 94660; 96365; 96375; 99285; G0378; G0480; J0456; J0696; J1885; J2060; J2405; J2920; J3411; J7030; J7050; J7070